=== PATIENT | male | born 1980 | race Caucasian/White ===

== ENCOUNTER → 2018-08-30 | Outpatient (CLI) | payer OTHER ==
--- NOTE | 2018-08-30 14:25 | KCIC ---
EXAM: Right ankle, 3 views. HISTORY: Rolled ankle. COMPARISON: None. FINDINGS: 3 views right ankle are obtained. There is no fracture, dislocation or subluxation. There is diffuse ankle soft tissue swelling. There is a suspected ossicle or osseous ridge along the inferior medial malleolus, likely developmental or the sequela of remote injury. There is a tiny plantar spur and minimal enthesopathy at the Achilles insertion. IMPRESSION: 1. No acute osseous finding. 2. Diffuse ankle soft tissue swelling. Electronically signed by: Dolores Salas MD (08/30/2018 2:22 PM) [place] [id number]
== END | disposition home or self-care (01) ==
LOC: KCIC 13:50
PROVIDERS: ATTEND Family Medicine
DX: M25.471 Effusion, right ankle (principal); M77.8 Other enthesopathies, not elsewhere classified
CPT/HCPCS: 73610